=== PATIENT | female | born 1975 | race Two or more races ===

== ENCOUNTER 2018-09-21 11:23 | Emergency (ER) | payer MEDICAID ==
[~2018-09-21] VITALS: Wt 77.6 kg
[~2018-09-21 11:23] MED LIST: PREN1TAB49
--- NOTE | 2018-09-21 13:07 | ERD ---
ER Documentation Chief Complaint Chief Complaint LEFT BREAST PAIN X 10 DAYS HPI 43-year-old female, presents the emergency department, complaining of left breast pain for 10 days. The pain was sharp, pulsatile, 05/09 until it spontaneously drained purulent material 2 days ago. no fever, no chills. No history of trauma. The patient is not breast-feeding. Medications taken: Motrin. ROS All systems reviewed and are negative except as per history of present illness. Medications Home Meds Active Scripts Ibuprofen* (Motrin*) 400 Mg Tab, 400 MG PO Q8, #15 TAB Prov:NOLE DUQUE MD 09/21/18 Sulfamethoxazole/Trimethoprim* (Bactrim Ds* Tablet) 1 Each Tablet, 1 TAB PO BID, #14 TAB Prov:NOEL DUQUE MD 09/21/18 Reported Medications Vits W-Ca,Fe,Fa(<1MG) () 1 Tab Tablet 03/27/10 Allergies Allergies: Coded Allergies: Penicillins (Verified Allergy, Unknown, 05/27/09) FmHx Family History: No diabetes, No coronary disease Physical Exam Vitals Vital Signs Date Temp Pulse Resp B/P (MAP) Pulse Ox O2 O2 Flow FiO2 Time Delivery Rate 09/21/18 98.1 89 18 133/85 99 11:26 (101) Physical Exam Const: No acute distress Head: Atraumatic Eyes: Normal Conjunctiva ENT: Normal External Ears, Nose and Mouth. Neck: Full range of motion. No meningismus. Resp: Clear to auscultation bilaterally Breast: Symmetrical, left breast with lateral area of open wound, surrounded by mild induration but no erythema, no fluctuance, no warmth to tenderness. Cardio: Regular rate and rhythm, no murmurs Abd: Soft, non tender, non distended. Normal bowel sounds Skin: No petechiae or rashes Back: No midline or flank tenderness Ext: No cyanosis, or edema Neur: Awake and alert Psych: Normal Mood and Affect Procedures/MDM Vital signs stable. Differential diagnosis considered include but not limited to: Cellulitis, abscess, lipoma, neoplasm. Low suspicion for acute systemic infection. Physical examination and clinical presentation consistent most likely with skin abscess already resolving after spontaneous drainage. No indication for incision and drainage in the ER. During the ED course the patient remained stable, no new complaints. Results and clinical impression discussed with the patient who agrees with management. The patient is stable to be treated outpatient and will be discharged home, some side effects of prescribed medications (headache, rash, nausea, vomiting, diarrhea, drowsiness, habituation, bleeding, hypertension, interactions with other medications) were reviewed. The patient was instructed to follow up with the primary care provider in the next 48h. If symptoms persist, worsen or new symptoms develop, then patient should return to the ED immediately. Instructions explained and given directly by me to the patient in [place]riot with acknowledgment and demonstrated understanding. Disclaimer: Inadvertent spelling and grammatical errors are likely due to EHR/dictation software use and do not reflect on the overall quality of patient care. Also, please note that the electronic time recorded on this note does not necessarily reflect the actual time of the patient encounter. Departure Diagnosis: Primary Impression: Skin abscess Condition: Stable Additional Instructions: Muchas emi por [facility] para simons servicio. Esperamos que en simons visita a la radha de emergencia simons problema medico haya sido solucionado y que se sienta mucho mejor. Para estar seguros que simons mejoria sigue en proceso, le pedimos el favor de hacer michelle sue de seguimiento medico con simons doctor primario en los proximos 2-4 meehan. Lleve con usted estos documentos y las medicinas recetadas. Si ayaz sintomas empeoran, NO SE ESPERE, por favor regrese a radha de emergencia INMEDIATAMENTE. En byron que usted no tenga un mdico de atencin primaria: Llame al mdico o clnica comunitaria de referencia que aparece abajo lucretia las horas de consultorio para hacer michelle sue para que le vean. CLINICAS: [facility] [phone] [phone] [facility] [phone] [id number] [facility] [phone] [facility] [phone] [id number] [facility]. [phone] NOEL WAYNE MD Sep 21, 2018 13:07
[2018-09-21] MEDS ORDERED: IBUP-1561 PO (13:55)
[2018-09-21] MEDS ORDERED: SULF1TAB31 PO (13:55)
== END 2018-09-21 14:12 | disposition home or self-care (01) ==
LOC: FTE 11:23
DX: N61.1 Abscess of the breast and nipple (principal)
CPT/HCPCS: 99283